=== PATIENT | male | born 1950 | race Caucasian/White ===

== ENCOUNTER 2017-08-11 10:13 | Observation (INO) | payer MEDICARE, OTHER ==
[~2017-08-11] VITALS: Ht 167.6 cm; Wt 73.0 kg
[2017-08-11] VITALS (9 sets, daily range): BP systolic 87–174; BP diastolic 49–96; PULSE 58–89; RESP 17–22; TEMP 98.2–98.9; O2SAT 94–97
[~2017-08-11 10:13] MED LIST: LISI-363 PO; PRAV40TA2 PO; PRIL20CA PO; TAB-TAB PO
[2017-08-11] MEDS ORDERED: OMEP20TA93 PO (10:27)
[2017-08-11] MEDS ORDERED: LISI-515 PO (10:27)
[2017-08-11] MEDS ORDERED: PRAV40TA2 PO (10:27)
[2017-08-11 11:28] LABS: AUTOMATED NEUTROPHIL # 9.1 TH/MM3 (1.8-7.7); BASOPHIL % 0.2 % (0.0-2.0); EOSINOPHIL # 0.1 TH/MM3 (0-0.4); EOSINOPHIL % 0.5 % (0.0-4.0); HEMATOCRIT 46.1 % (39.0-51.0); HEMOGLOBIN 16.1 GM/DL (13.0-17.0); LYMPH % 17.6 % (9.0-44.0); LYMPHOCYTE # 2.1 TH/MM3 (1.0-4.8); MEAN CELL VOLUME 90.2 FL (80.0-100.0); MEAN CORPUSCULAR HEMOGLOBIN 31.5 PG (27.0-34.0); MEAN CORPUSCULAR HGB CONC 34.9 % (32.0-36.0); MEAN PLATELET VOLUME 7.7 FL (7.0-11.0); MONO % 6.5 % (0.0-8.0); MONOCYTE # 0.8 TH/MM3 (0-0.9); NEUT % 75.2 % (16.0-70.0); PLATELET COUNT 256 TH/MM3 (150-450); RED CELL DISTRIBUTION WIDTH 12.7 % (11.6-17.2); WHITE BLOOD COUNT 12.1 TH/MM3 (4.0-11.0)
[2017-08-11] MEDS ORDERED: NITROGLYCERIN 0.4 MG SL 25 TABS/BTL SL ONE (11:45)
[2017-08-11] MEDS ORDERED: ASPIRIN 325 MG TAB PO ONE (11:45)
[2017-08-11] MEDS ORDERED: ONDANSETRON HCL 4 MG/2 ML VIAL IV PUSH ONE (11:45)
[2017-08-11] MEDS ORDERED: MORPHINE SULFATE 2 MG/ML INJ IV PUSH ONE (11:45)
[2017-08-11 11:48] LABS: BICARBONATE 24.6 MEQ/L (21.0-32.0); BLOOD UREA NITROGEN 17 MG/DL (7-18); CHLORIDE 105 MEQ/L (98-107); GLOMERULAR FILTRATION RATE 67 ML/MIN (>89); GLUCOSE,RANDOM 152 MG/DL (74-106); SODIUM (NA) 139 MEQ/L (136-145)
[2017-08-11 11:51] LABS: TROPONIN I LESS THAN 0.02 NG/ML (0.02-0.05)
--- NOTE | 2017-08-11 11:52 | RADRPT ---
EXAM DATE/TIME: 08/11/2017 11:35 [facility] COMPARISON: No previous studies available for comparison. INDICATIONS : Left upper chest pains mid-sternal to lef shoulder. MEDICAL HISTORY : None. SURGICAL HISTORY : None. ENCOUNTER: Initial ACUITY: 2 days PAIN SCORE: 8/10 LOCATION: Left chest FINDINGS: Single AP view of the chest. Lung volumes are low. Patchy medial left lung base opacity. Cardiac silh ouette is moderately enlarged. Mild blunting of the left costophrenic sulcus may represent scarring o r small pleural effusion.. No evidence of a pneumothorax. CONCLUSION: 1. Moderately enlarged cardiac silhouette. 2. Small left pleural effusion versus scarring. 3. Medial left lung base atelectasis versus mild consolidation. Chris Cameron MD on August 11, 2017 at 11:48 Board Certified Radiologist. This report was verified electronically.
[2017-08-11] MEDS ORDERED: SODIUM CHLOR 0.9% 1000 ML INJ 1,000 ML IV ONE (12:15)
--- NOTE | 2017-08-11 12:30 | PD ---
HPI Chief Complaint: Chest Pain Time Seen by Provider: 11:22 Travel History International Travel<30 days: No Contact w/Intl Traveler<30days: No Traveled to known affect area: No History of Present Illness HPI 66 yo male here for evaluation of left sided chest pain and SOB with excertion. Going on for about 3 hours. Per patient he woke up with this pain but wasn't as bad. Per patient he went to a tennis match as he thought he may be shoulder related as he had the pain on the left shoulder and then the pain gets more severe to he didn't playing and he thought he could go home but on his way home started having more pain and he decided to come here. He states that he does not have any history of heart disease. He does have a history of high cholesterol and hypertension. She is compliant with his medications per patient. He has never been diagnosed with any history of CHF and has never had a stress test in his life. He does have a family history of heart disease. He denies any history of COPD or asthma. He does have an old history of smoking. He states that the pain feels more like a pressure and it makes it hard for him to sleep. He has no allergies to medication. Per patient the pain currently is 8 out of 10. He did not took an aspirin today. He denies any recent travel. No recent surgeries. No other medical issues at this time. PFSH Past Medical History Cancer: Yes (SKIN) Cardiovascular Problems: No Diabetes: No Diminished Hearing: No Endocrine: No Gastrointestinal Disorders: Yes (GERD) Genitourinary: No Hepatitis: No Hiatal Hernia: No Hypertension: Yes Immune Disorder: No Musculoskeletal: Yes (ARTHRITIS) Neurologic: No Psychiatric: No Respiratory: Yes (SLEEP APNEA (NO CPAP)) Thyroid Disease: No ?: Not Past Surgical History Abdominal Surgery: Yes (RIGHT ING. HERNIA REP.) AICD: No Body Medical Devices: SCREW RIGHT HAND Joint Replacement: No Oral Surgery: Yes (T & A) Pacemaker: No Other Surgery: Yes Social History Alcohol Use: Yes (DAILY) Tobacco Use: No Substance Use: No Allergies-Medications (Allergen,Severity, Reaction): Coded Allergies: No Known Allergies (Unverified , 11/08/14) Reported Meds & Prescriptions Reported Meds & Active Scripts Active Reported Omeprazole 20 Mg Tab 20 Mg PO DAILY Pravastatin 40 Mg Tab 40 Mg PO DAILY Lisinopril 20 Mg Tab 20 Mg PO DAILY Review of Systems Except as stated in HPI: all other systems reviewed are Neg Physical Exam Narrative GENERAL: SKIN: Warm and dry. HEAD: Atraumatic. Normocephalic. EYES: Pupils equal and round. No scleral icterus. No injection or drainage. ENT: No nasal bleeding or discharge. Mucous membranes pink and moist. Tongue is midline. No uvula deviation. NECK: Trachea midline. No JVD. CARDIOVASCULAR: Regular rate and rhythm. No murmurs, S3, S4. Chest pain is reproducible with touch. RESPIRATORY: No accessory muscle use. Clear to auscultation. Breath sounds equal bilaterally. GASTROINTESTINAL: Abdomen soft, non-tender, nondistended. Hepatic and splenic margins not palpable. MUSCULOSKELETAL: Extremities without clubbing, cyanosis, or edema. No obvious deformities. Full range of motion of the upper and lower extremities bilaterally. 2+ pulses bilaterally. NEUROLOGICAL: Awake and alert. No obvious cranial nerve deficits. Motor grossly within normal limits. Five out of 5 muscle strength in the arms and legs. Normal speech. PSYCHIATRIC: Appropriate mood and affect; insight and judgment normal. Data Data Last Documented VS Vital Signs Date Time Temp Pulse Resp B/P (MAP) Pulse Ox O2 Delivery O2 Flow Rate FiO2 08/11/17 12:33 75 22 133/70 (91) 96 Nasal Cannula 2.00 08/11/17 10:15 98.2 Orders Orders Electrocardiogram (08/11/17 11:09) Complete Blood Count With Diff (08/11/17 11:09) Basic Metabolic Panel (Bmp) (08/11/17 11:09) Ckmb (Isoenzyme) Profile (08/11/17 11:09) Troponin I (08/11/17 11:09) Chest, Single Ap (08/11/17 11:09) Iv Access Insert/Monitor (08/11/17 11:09) Ecg Monitoring (08/11/17 11:09) Oxygen Administration (08/11/17 11:09) Oximetry (08/11/17 11:09) Nitroglycerin Sl (Nitrostat Sl) (08/11/17 11:45) Aspirin (Aspirin) (08/11/17 11:45) Morphine Inj (Morphine Inj) (08/11/17 11:45) Ondansetron Inj (Zofran Inj) (08/11/17 11:45) Coag Profile (08/11/17 11:32) CKMB (08/11/17 11:15) CKMB% (08/11/17 11:15) B-Type Natriuretic Peptide (08/11/17 12:01) Sodium Chlor 0.9% 1000 Ml Inj (Ns 1000 M (08/11/17 12:15) Admit Order (Ed Use Only) (08/11/17 13:23) Labs Laboratory Tests Test 08/11/17 11:15 08/11/17 11:30 White Blood Count 12.1 TH/MM3 Red Blood Count 5.10 MIL/MM3 Hemoglobin 16.1 GM/DL Hematocrit 46.1 % Mean Corpuscular Volume 90.2 FL Mean Corpuscular Hemoglobin 31.5 PG Mean Corpuscular Hemoglobin Concent 34.9 % Red Cell Distribution Width 12.7 % Platelet Count 256 TH/MM3 Mean Platelet Volume 7.7 FL Neutrophils (%) (Auto) 75.2 % Lymphocytes (%) (Auto) 17.6 % Monocytes (%) (Auto) 6.5 % Eosinophils (%) (Auto) 0.5 % Basophils (%) (Auto) 0.2 % Neutrophils # (Auto) 9.1 TH/MM3 Lymphocytes # (Auto) 2.1 TH/MM3 Monocytes # (Auto) 0.8 TH/MM3 Eosinophils # (Auto) 0.1 TH/MM3 Basophils # (Auto) 0.0 TH/MM3 CBC Comment DIFF FINAL Differential Comment Blood Urea Nitrogen 17 MG/DL Creatinine 1.10 MG/DL Random Glucose 152 MG/DL Calcium Level 9.0 MG/DL Sodium Level 139 MEQ/L Potassium Level 3.7 MEQ/L Chloride Level 105 MEQ/L Carbon Dioxide Level 24.6 MEQ/L Anion Gap 9 MEQ/L Estimat Glomerular Filtration Rate 67 ML/MIN Total Creatine Kinase 139 U/L Creatine Kinase MB 1.4 NG/ML Troponin I LESS THAN 0.02 NG/ML B-Type Natriuretic Peptide 19 PG/ML Prothrombin Time 10.0 SEC Prothromb Time International Ratio 1.0 RATIO Activated Partial Thromboplast Time 24.4 SEC MDM Medical Decision Making Medical Screen Exam Complete: Yes Emergency Medical Condition: Yes Medical Record Reviewed: Yes Interpretation(s) CBC & BMP Diagram 08/11/17 11:15 Calcium Level 9.0 troponin and CKMB negative BNP WNL EKG shows sinus rhythm with no sign of acute ischemia or arrythmia. Differential Diagnosis Chest pain versus a typical chest pain versus ACS versus CHF versus costochondritis versus pneumonia Narrative Course 66-year-old male that presents to the ED for evaluation of chest pain. Patient was properly examined and was found to have signs and symptoms concerning for ACS. Labs and imaging were ordered. Labs and imaging were essentially unremarkable. Patient had improvement of symptoms with nitroglycerin although his blood pressure the came down drastically. Given full aspirin as well. He was given a bolus of fluid with improvement of his blood pressure. At this time I do recommend admission for further evaluation of the chest pain. Chest x -ray is concerning for cardiomegaly as well as possible mild pleural effusion which could be related to ACS versus CHF. I spoke with my attending Dr. Montes who was made aware of all findings and recommends admission to the chest pain center. Patient agrees with this plan. Diagnosis Primary Impression: Chest pain in adult Admitting Information Admitting Physician Requests: Observation Dereck Casas Aug 11, 2017 12:30
--- NOTE | 2017-08-11 14:11 | HHI.HP ---
[facility] Primary Care Physician Yamileth Messer MD Chief Complaint Chest pain History of Present Illness This is a 66-year-old male with history of hypertension and hyperlipidemia that presents to ED with a complaint of chest discomfort. Patient states that he was awoken about 5:00 this morning with a left shoulder discomfort. Describes as a dull pain. He began to move the arm around and really didn't feel any different. However after Awhile moving it, his shoulder began to feel better. Then he decided to go to his tennis match and while driving there is discomfort worsen again and it began to radiate to left upper chest and along both sides of his neck. At that point he decided to have the discomfort evaluated. While driving to the ED the discomfort began to improve significantly and so returned around twice. But then it recurred more intensely and decided to stay for evaluation. Worse level is 9-10 out of 10. Currently a 1-2 out of 10. He was short of breath with the discomfort. He states that now the discomfort worsens when he takes a deep breath. He has had a cough or cold. He states that for the past month and a half he has had for the most part a nonproductive cough. States that a lot of his friends and acquaintances have been sick recently. Cannot recall having a fever. Denies history of CAD but cannot recall ever having a cardiac evaluation. Review of Systems General: Patient denies fevers, chills recent, and recent travel HEENT: Patient denies headache, sore throat, difficulty swallowing. Cardiovascular: Has the chest discomfort as mentioned above. Denies sensation of heart beating rapidly or irregularly. No syncope. Denies diaphoresis. Respiratory: He was short of breath. The discomfort is worsened with inspiration. Denies coughing wheezing or hemoptysis. GI: Patient denies nausea, vomiting, diarrhea, abdominal pain, bloody stools. Musculoskeletal: Patient denies joint pain or edema. Denies calf pain or edema. Neurovascular: Patient denies numbness, tingling, weakness in extremities. Denies headache. Endocrine: Denies polyuria and polydipsia. Hematologic: Denies easy bruising. Skin: Denies rash or itching. Past Family Social History Allergies: Coded Allergies: No Known Allergies (Unverified , 11/08/14) Past Medical History Hypertension and hyperlipidemia. Denies diabetes and CAD. Past Surgical History Hernia repair. Right hand. Tonsillectomy. Reported Medications Reported Meds & Active Scripts Active Reported Omeprazole 20 Mg Tab 20 Mg PO DAILY Pravastatin 40 Mg Tab 40 Mg PO DAILY Lisinopril 20 Mg Tab 20 Mg PO DAILY Active Ordered Medications Current Medications Medications (Trade) Dose Ordered Sig/[place] Route Start Time Stop Time Status Last Admin (Prinivil) 20 mg DAILY PO 08/11/17 14:00 UNV (Pravachol) 40 mg DAILY PO 08/11/17 14:00 UNV Non-Formulary Medication 20 mg DAILY PO 08/11/17 14:00 UNV (Tylenol) 500 mg Q4H PRN PO 08/11/17 14:00 UNV ([place] 7.5-325 Mg) 1 tab Q4H PRN PO 08/11/17 14:00 UNV (Zofran Inj) 4 mg Q6H PRN IV PUSH 08/11/17 14:00 UNV (Aspirin) 325 mg DAILY PO 08/12/17 09:00 UNV (Xanax) 0.25 mg Q8H PRN PO 08/11/17 14:00 UNV Family History Denies family history of CAD. Social History Lifetime nonsmoker. Has on average 3-4 mixed-race per evening. Denies illicit drug use. Physical Exam Vital Signs Vital Signs Date Time Temp Pulse Resp B/P (MAP) Pulse Ox O2 Delivery O2 Flow Rate FiO2 08/11/17 12:33 75 22 133/70 (91) 96 Nasal Cannula 2.00 08/11/17 12:08 20 08/11/17 12:08 20 08/11/17 12:07 58 19 87/49 (62) 94 Nasal Cannula 2.00 08/11/17 11:54 75 20 153/81 (105) 96 Nasal Cannula 2.00 08/11/17 11:12 94 Nasal Cannula 2.00 08/11/17 10:18 88 Nasal Cannula 2.00 08/11/17 10:15 98.2 82 18 174/96 (122) 97 Physical Exam GENERAL: This is a well-nourished, well-developed patient, in no apparent distress. Patient speaks in clear complete sentences. Patient is pleasant. HEENT: Head is atraumatic and normocephalic. Neck is supple without lymphadenopathy and trachea is midline. No JVD or carotid bruits. CARDIOVASCULAR: Regular rate and rhythm without murmurs, gallops, or rubs. RESPIRATORY: Clear to auscultation. Breath sounds equal bilaterally. No wheezes , rales, or rhonchi. Chest wall is nontender. No use of accessory muscles. Discomfort is worsened when he takes in a deep breath. GASTROINTESTINAL: Abdomen is nontender, nondistended. Abdomen soft. No obvious pulsatile mass or bruit. No CVA tenderness. Strong femoral pulses bilaterally. Normal bowel sounds in all quadrants. MUSCULOSKELETAL: Patient is moving upper and lower extremities freely. No calf tenderness or edema, no Homans sign. Strong pulses in upper and lower extremities. NEUROLOGICAL: Patient is alert and oriented. Cranial nerves 2-12 are grossly intact. No focal deficits and speech is clear. SKIN: No rash and turgor is normal. Laboratory Laboratory Tests Test 08/11/17 11:15 08/11/17 11:30 White Blood Count 12.1 Red Blood Count 5.10 Hemoglobin 16.1 Hematocrit 46.1 Mean Corpuscular Volume 90.2 Mean Corpuscular Hemoglobin 31.5 Mean Corpuscular Hemoglobin Concent 34.9 Red Cell Distribution Width 12.7 Platelet Count 256 Mean Platelet Volume 7.7 Neutrophils (%) (Auto) 75.2 Lymphocytes (%) (Auto) 17.6 Monocytes (%) (Auto) 6.5 Eosinophils (%) (Auto) 0.5 Basophils (%) (Auto) 0.2 Neutrophils # (Auto) 9.1 Lymphocytes # (Auto) 2.1 Monocytes # (Auto) 0.8 Eosinophils # (Auto) 0.1 Basophils # (Auto) 0.0 CBC Comment DIFF FINAL Differential Comment Blood Urea Nitrogen 17 Creatinine 1.10 Random Glucose 152 Calcium Level 9.0 Sodium Level 139 Potassium Level 3.7 Chloride Level 105 Carbon Dioxide Level 24.6 Anion Gap 9 Estimat Glomerular Filtration Rate 67 Total Creatine Kinase 139 Creatine Kinase MB 1.4 Troponin I LESS THAN 0.02 B-Type Natriuretic Peptide 19 Prothrombin Time 10.0 Prothromb Time International Ratio 1.0 Activated Partial Thromboplast Time 24.4 Result Diagram: 08/11/17 1115 08/11/17 1115 Imaging Last 48 hours Impressions Chest X-Ray 08/11/17 1109 Signed Impressions: Service Date/Time: July 11:35 - CONCLUSION: 1. Moderately enlarged cardiac silhouette. 2. Small left pleural effusion versus scarring. 3. Medial left lung base atelectasis versus mild consolidation. Chris Cameron MD Course Initial EKG is sinus rhythm rate of [address] segment depressions or elevations. Caprini VTE Risk Assessment Caprini VTE Risk Assessment: Mod/High Risk (score >= 2) Caprini Risk Assessment Model Point Value = 1 Point Value = 2 Point Value = 3 Point Value = 5 Age 41-60 Minor surgery BMI > 25 kg/m2 Swollen legs Varicose veins or History of unexplained or recurrent spontaneous Oral contraceptives or hormone replacement Sepsis (< 1 month) Serious lung disease, including pneumonia (< 1 month) Abnormal pulmonary function Acute myocardial infarction Congestive heart failure (< 1 month) History of inflammatory bowel disease Medical patient at bed rest Age 61-74 Arthroscopic surgery Major open surgery (> 45 min) Laparoscopic surgery (> 45 min) Malignancy Confined to bed (> 72 hours) Immobilizing plaster cast Central venous access Age >= 75 History of VTE Family history of VTE Factor V Leiden Prothrombin [id number] Lupus anticoagulant Anticardiolipin antibodies Elevated serum homocysteine Heparin-induced thrombocytopenia Other congenital or acquired thrombophilia Stroke (< 1 month) Elective arthroplasty Hip, pelvis, or leg fracture Acute spinal cord injury (< 1 month) Prophylaxis Regimen Total Risk Factor Score Risk Level Prophylaxis Regimen 0-1 Low Early ambulation 2 Moderate Order ONE of the following: *Sequential Compression Device (SCD) *Heparin 5000 units SQ BID 3-4 Higher Order ONE of the following medications: *Heparin 5000 units SQ TID *Enoxaparin/Lovenox 40 mg SQ daily (WT < 150 kg, CrCl > 30 mL/min) *Enoxaparin/Lovenox 30 mg SQ daily (WT < 150 kg, CrCl > 10-29 mL/min) *Enoxaparin/Lovenox 30 mg SQ BID (WT < 150 kg, CrCl > 30 mL/min) AND/OR *Sequential Compression Device (SCD) 5 or more Highest Order ONE of the following medications: *Heparin 5000 units SQ TID (Preferred with Epidurals) *Enoxaparin/Lovenox 40 mg SQ daily (WT < 150 kg, CrCl > 30 mL/min) *Enoxaparin/Lovenox 30 mg SQ daily (WT < 150 kg, CrCl > 10-29 mL/min) *Enoxaparin/Lovenox 30 mg SQ BID (WT < 150 kg, CrCl > 30 mL/min) AND *Sequential Compression Device (SCD) Assessment and Plan Assessment and Plan * Chest pain: Patient will continue to have serial cardiac enzymes and EKGs for ruling out purposes. He is being evaluated by Dr. Arriaga of cardiology and the chest pain center. We will get a CT a pulmonary angiogram to evaluate his discomfort and dyspnea. If CTA is negative then patient likely will proceed with stress testing in the morning. And if that is nonischemic he would then be discharged home with instructions to follow-up with PCP and return to ED for interval issues. * Hypertension: Resume medication. * Hyperlipidemia: Continue current medication. * GERD: Continue current medication. Patient is stable at this time. He is agreeable to this plan. Amrit Franklin Aug 11, 2017 14:11
[2017-08-11] MEDS ORDERED: IOHEXOL 350 MG/ML 10 ML VIAL (for RAD DIAG) IVCONTRAST ONE (14:41)
[2017-08-11] MEDS ORDERED: ALPRAZolam 0.25 MG TAB PO PRN (14:45)
[2017-08-11] MEDS ORDERED: ACETAMINOPHEN 500 MG CPLT PO PRN (14:45)
[2017-08-11] MEDS ORDERED: ONDANSETRON HCL 4 MG/2 ML VIAL IV PUSH PRN (15:00)
[2017-08-11] MEDS: PRAVASTATIN SOD 40 MG TAB PO SCH (15:05)
[2017-08-11] MEDS: PANTOPRAZOLE SOD 20 MG DELAYED RELEASE TAB PO SCH (15:05)
[2017-08-11] MEDS: ACETAMINOPHEN/HYDROcodone 325 MG/7.5 MG TAB PO PRN ×2 (15:05→22:10)
[2017-08-11] MEDS: LISINOPRIL 20 MG TAB PO SCH (15:06)
--- NOTE | 2017-08-11 15:20 | RADRPT ---
EXAM DATE/TIME: 08/11/2017 14:35 [facility] COMPARISON: No previous studies available for comparison. INDICATIONS : Chest pain, Left arm pain, evaluate for embolism IV CONTRAST: 70 cc Omnipaque 350 (iohexol) IV RADIATION DOSE: 14.84 CTDIvol (mGy) MEDICAL HISTORY : Hypertension. Skin cancer SURGICAL HISTORY : None. ENCOUNTER: Initial ACUITY: 1 day PAIN SCALE: 8/10 LOCATION: Bilateral chest TECHNIQUE: Volumetric scanning of the chest was performed using a pulmonary embolism protocol MIP images were re constructed. Using automated exposure control and adjustment of the mA and/or kV according to patien t size, radiation dose was kept as low as reasonably achievable to obtain optimal diagnostic quality images. DICOM format image data is available electronically for review and comparison. Follow-up recommendations for detected pulmonary nodules are based at a minimum on nodule size and pa tient risk factors according to Fleischner Society Guidelines. FINDINGS: PULMONARY ARTERIES: No filling defects are seen in the pulmonary arteries through the segmental level. LUNGS: Mild bibasilar atelectasis. No mass or infiltrate. PLEURAE: There is no pleural thickening or pleural effusion. MEDIASTINUM: The heart is mildly enlarged. No pericardial effusion. Significant coronary artery atherosclerotic ca lcifications. Aorta is normal in caliber. No adenopathy or mass. MUSCULOSKELETAL: Within normal limits for patient age. MISCELLANEOUS: The visualized upper abdominal organs demonstrate no acute abnormality. CONCLUSION: 1. No acute intrathoracic abnormality. In particular, no pulmonary embolus. 2. Mild bibasilar atelectasis. Fritz Carias Jr., MD on August 11, 2017 at 15:15 Board Certified Radiologist. This report was verified electronically.
[2017-08-11 15:41] LABS: TROPONIN I LESS THAN 0.02 NG/ML (0.02-0.05)
[2017-08-11] MEDS: METOPROLOL TARTRATE 25 MG TAB PO SCH ×2 (16:05→22:10)
[2017-08-11 18:19] LABS: TROPONIN I LESS THAN 0.02 NG/ML (0.02-0.05)
[2017-08-12 03:08] VITALS: BP 142/90; PULSE 71; RESP 17; TEMP 99; O2SAT 96
[2017-08-12 07:09] VITALS: BP 147/90; PULSE 64; RESP 18; TEMP 98.2; O2SAT 95
[2017-08-12] MEDS: PANTOPRAZOLE SOD 20 MG DELAYED RELEASE TAB PO SCH (08:29)
[2017-08-12] MEDS: PRAVASTATIN SOD 40 MG TAB PO SCH (08:29)
[2017-08-12] MEDS: LISINOPRIL 20 MG TAB PO SCH (08:29)
[2017-08-12] MEDS ORDERED: ASPIRIN 325 MG TAB PO SCH (09:00)
[2017-08-12] MEDS: METOPROLOL TARTRATE 25 MG TAB PO SCH (09:00)
[2017-08-12] MEDS ORDERED: REGADENOSON INJ 0.4 MG/5 ML SYR ONE (09:37)
--- NOTE | 2017-08-12 11:13 | RADRPT ---
EXAM DATE/TIME: 08/12/2017 09:17 [facility] COMPARISON: No previous studies available for comparison. INDICATIONS : Left sided chest and shoulder pain for one day. Angina. DOSE: 26.2 mCi Tc99m Myoview at stress. 8.2 mCi Tc99m Myoview at rest. 0.4 mg Lexiscan STRESS SYMPTOMS: None. EJECTION FRACTION: 62% MEDICAL HISTORY : Hypertension. Gastroesophageal reflux disease. SURGICAL HISTORY : Tonsillectomy. Umbilical hernia repair. ENCOUNTER: Initial ACUITY: 1 day PAIN SCALE: 9/10 LOCATION: Left chest TECHNIQUE: The patient underwent pharmacologic stress with infusion of prescribed dose. Continuous ECG tracing was monitored during stress. Gated SPECT imaging was performed after stress and conventional SPECT i maging was performed at rest. The examination was performed on a SPECT/CT scanner, both attenuation and non-corrected datasets were reviewed. FINDINGS: DISTRIBUTION: The maximum perfused segment at stress is in the anterolateral wall. PERFUSION STUDY: The pattern of perfusion at stress is within normal limits. Mild apical thinning. No reversibility GATED STUDY: There is intact wall motion and thickening without hypokinetic or dyskinetic segments. CONCLUSION: 1. Mild apical thinning. No reversibility to suggest ischemia. 2. Adequate wall motion throughout with estimated ejection fraction of 62% RISK CATEGORY: Low (<1% Annual Mortality Rate) Pepito Miner MD on August 12, 2017 at 10:57 Board Certified Radiologist. This report was verified electronically.
[2017-08-12 11:14] VITALS: BP 162/80; PULSE 73; RESP 18; TEMP 98.2; O2SAT 97
--- NOTE | 2017-08-12 12:06 | HHI.DCPOC ---
Discharge Care Plan Diagnosis: (1) Atypical chest pain Goals to Promote Your Health * To prevent worsening of your condition and complications * To maintain your health at the optimal level Directions to Meet Your Goals Take your medications as prescribed Follow your dietary instruction Follow activity as directed Keep your appointments as scheduled Take your immunizations and boosters as scheduled If your symptoms worsen call your PCP, if no PCP go to Urgent Care Center or Emergency Room Smoking is Dangerous to Your Health. Avoid second hand smoke Call the 24-hour hour crisis hotline for domestic abuse at Cynthia Moore Aug 12, 2017 12:06
--- NOTE | 2017-08-12 12:07 | HHI.DS ---
Discharge Summary Admission Date Aug 11, 2017 at 13:25 Discharge Date: Aug 12, 2017 Admitting Diagnosis chest pain, r/o ACS Brief History 66-year-old male with history of hypertension and hyperlipidemia percent emergency room for further evaluation of left anterior chest and left shoulder pain. Admitted to chest pain center. Ruled out with serial EKGs and cardiac enzymes. Seen and evaluated by assistant librarian. CT pulmonary suggested significant coronary calcifications. Proceeded with chemical stress test which was unremarkable for ischemia. CBC/BMP: 08/11/17 1115 08/11/17 1115 Significant Findings Laboratory Tests Test 08/11/17 11:15 08/11/17 11:30 08/11/17 15:04 08/11/17 17:15 White Blood Count 12.1 TH/MM3 (4.0-11.0) Neutrophils (%) (Auto) 75.2 % (16.0-70.0) Neutrophils # (Auto) 9.1 TH/MM3 (1.8-7.7) Random Glucose 152 MG/DL (74-106) Estimat Glomerular Filtration Rate 67 ML/MIN (>89) Troponin I LESS THAN 0.02 NG/ML LESS THAN 0.02 NG/ML LESS THAN 0.02 NG/ML Imaging Last 48 hours Impressions Myocardial Perfusion Scan Nuc Med 08/12/17 0000 Signed Impressions: Service Date/Time: Saturday, August 12, 2017 09:17 - CONCLUSION: 1. Mild apical thinning. No reversibility to suggest ischemia. 2. Adequate wall motion throughout with estimated ejection fraction of 62%% RISK CATEGORY: Low (<1%% Annual Mortality Rate) Pepito Miner MD Chest X-Ray 08/11/17 1109 Signed Impressions: Service Date/Time: July 11:35 - CONCLUSION: 1. Moderately enlarged cardiac silhouette. 2. Small left pleural effusion versus scarring. 3. Medial left lung base atelectasis versus mild consolidation. Chris Cameron MD CT Angiography 08/11/17 0000 Signed Impressions: Service Date/Time: July 14:35 - CONCLUSION: 1. No acute intrathoracic abnormality. In particular, no pulmonary embolus. 2. Mild bibasilar atelectasis. Fritz Carias Jr., MD PE at Discharge GENERAL: Alert WN, WD, NAD, pleasant, male HEAD: NC, AT CV: RRR, without murmur, rub, gallop, no JVD, S1-S2 no S3-S4. Chest wall nontender with palpation. RESP: Clear lungs throughout bilateral, no crackles, wheeze, rhonchi, symmetrical chest rise, nonlabored, able to speak in full sentences EXT: Pulses +24, no dependent edema MS: Normal tone 4 extremities, no obvious deformities, full range of motion PSYCH: A+O 3, pleasant affect, appropriate speech, mood, insight and judgment SKIN: Normal turgor, normal texture, no lesions, no rashes, brisk cap refill, even hair distribution Pt Condition on Discharge: Good Discharge Disposition: Discharge Home Discharge Instructions DIET: Follow Instructions for: Heart Healthy Diet Activities you can perform: Regular-No Restrictions Cynthia Moore Aug 12, 2017 12:07
--- NOTE | 2017-08-12 13:29 | TR ---
Date Performed: 08/12/2017 Time Performed: 09:40:14 DOCTOR: Jarred Arriaga DRUG LIST: CLINICAL HISTORY: REASON FOR TEST: REASON FOR ENDING: OBSERVATION: CONCLUSION: Lexiscan stress test was performed under standard four minute protocol. Radionuclid e was injected one minute prior to ending the test. No electrocardiographic abormalities were present to suggest ischemia. Nuclear imaging and interpretation are pending. COMMENTS:
--- NOTE | 2017-08-12 13:43 | EKG ---
Date Performed: 08/11/2017 Time Performed: 17:24:30 PTAGE: 66 years EKG: Sinus rhythm NORMAL ECG PREVIOUS TRACING : 08/11/2017 15.02 Since previous tracing, no significant change noted DOCTOR: Jarred Arriaga Interpretating Date/Time 08/12/2017 13:41:35
--- NOTE | 2017-08-12 13:47 | EKG ---
Date Performed: 08/11/2017 Time Performed: 15:02:37 PTAGE: 66 years EKG: Sinus rhythm NORMAL ECG PREVIOUS TRACING : 08/11/2017 10.25 Compared to previous tracing,STT wave changes have resolved . DOCTOR: Jarred Arriaga Interpretating Date/Time 08/12/2017 13:46:12
--- NOTE | 2017-08-12 13:49 | EKG ---
Date Performed: 08/11/2017 Time Performed: 10:25:10 PTAGE: 66 years EKG: Sinus rhythm POSSIBLE LEFT ATRIAL ENLARGEMENT NONSPECIFIC T-WAVE ABNORMALITY BORDERLINE ECG Compared to PREVIOUS TRACING ,STTwave changes are new. DOCTOR: Jarred Arriaga Interpretating Date/Time 08/12/2017 13:47:30
== END 2017-08-12 14:11 | disposition home or self-care (01) ==
LOC: NEPC 10:13 → NEDA 13:25 → NEPHCDU 17:20
DX: R07.89 Other chest pain (principal); R06.02 Shortness of breath; I10 Essential (primary) hypertension; E78.5 Hyperlipidemia, unspecified; R94.31 Abnormal electrocardiogram [ECG] [EKG]; K21.9 Gastro-esophageal reflux disease without esophagitis; G47.30 Sleep apnea, unspecified; Z87.891 Personal history of nicotine dependence; Z82.49 Family history of ischemic heart disease and other diseases of the circulatory system
CPT/HCPCS: 71045; 71275; 78452; 80048; 82550; 82552; 83880; 84484; 85025; 85610; 85730; 93005; 93017; 96361; 96374; 96375; 99285; A9502; G0378; J2270; J2405; J2785; J7030; Q9967